=== PATIENT | male | born 1980 | race African-American/Black ===

== ENCOUNTER 2017-08-14 05:13 | Emergency (ER) | payer SELFPAY ==
[2017-08-14 05:30] VITALS: BP 176/106
[2017-08-14] MEDS: BUPIVACAINE HCL/PF 5 MG/ML 10ML VIAL IJ ONE (05:52)
[2017-08-14] MEDS: BUPIVACAINE HCL/PF 5 MG/ML 10ML VIAL IV ONE (05:52)
[2017-08-14] MEDS: NEOMYCIN/BACITRACIN/POLYMYXINB 1 EACH OINT.PACK TP ONE (06:16)
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
== END 2017-08-14 06:10 | disposition home or self-care (01) ==
LOC: ED 05:13
DX: S01.81XA Laceration without foreign body of other part of head, initial encounter (principal); W25.XXXA Contact with sharp glass, initial encounter; Y92.9 Unspecified place or not applicable; Y93.9 Activity, unspecified; Y99.9 Unspecified external cause status
CPT/HCPCS: 96372; 99282; J3490